=== PATIENT | female | born 1980 | race African-American/Black ===

== ENCOUNTER 2017-04-26 10:48 | Emergency (ER) | payer MEDICAID ==
[~2017-04-26] VITALS: Ht 160 cm; Wt 58.1 kg
[2017-04-26 10:56] VITALS: BP_SYST 109
--- NOTE | 2017-04-26 11:29 | NUR ---
Patient to ER bed 4 to gown for evaluation. Side rails up. Report given to Kenn GUO.
[2017-04-26 11:30] LABS: BASOPHILS % (AUTO) 0.8 % (0.0-2.0); EOSINOPHILS # (AUTO) 0.1 K/uL (0.0-0.4); EOSINOPHILS % (AUTO) 2.2 % (0.0-4.0); HEMOGLOBIN 13.1 g/dL (12.0-16.0); LYMPHOCYTES % (AUTO) 22.6 % (20.5-51.5); MEAN CORPUSCULAR HEMOGLOBIN 30 pg (27-31); MEAN CORPUSCULAR HGB CONC 33 % (32-36); MEAN CORPUSCULAR VOLUME 92 fL (79.0-98.0); MONOCYTES # (AUTO) 0.5 K/uL (0.0-1.0); MONOCYTES % (AUTO) 11.3 % (1.7-9.3); NEUTROPHILS # (AUTO) 2.6 K/uL (1.8-7.7); NEUTROPHILS % (AUTO) 63.1 % (40.0-70.0); PLATELET COUNT (AUTO) 280 K/uL (130-430); RED BLOOD CELL COUNT(AUTO) 4.35 MIL/uL (4.2-6.2); RED CELL DISTRIBUTION WIDTH 12.7 % (9.0-15.0); WHITE BLOOD COUNT (AUTO) 4.2 K/uL (4.8-10.8)
[2017-04-26 11:33] LABS: INR 1.1 (0.8-1.2); PROTHROMBIN TIME 11.5 SECS (9.5-12.5)
--- NOTE | 2017-04-26 11:35 | NUR ---
Dr Blackburn at bedside examining patient
--- NOTE | 2017-04-26 11:35 | NUR ---
Pt brought by self, A&Ox4, pt c/o cough and sore throat, skin pink and warm, ambulatory, VS WNL
[2017-04-26 11:41] LABS: CALCIUM 8.8 mg/dL (8.4-11.0); CREATININE 0.77 mg/dL (0.55-1.30); POTASSIUM 3.8 mmol/L (3.5-5.1)
[2017-04-26 12:57] VITALS: BP_SYST 109
--- NOTE | 2017-04-26 13:00 | NUR ---
Patient given written and verbal discharge instructions and verbalizes understanding. ER MD discussed with patient the results and treatment provided. Patient in stable condition. ID arm band removed. Rx of Clindamycin and Motrin given. Patient educated on pain management and to follow up with PMD. Pain Scale 0/10 . Opportunity for questions provided and answered.
== END 2017-04-26 12:57 | disposition home or self-care (01) ==
LOC: SED 10:48
DX: J02.9 Acute pharyngitis, unspecified (principal); R53.1 Weakness; Z88.0 Allergy status to penicillin
CPT/HCPCS: 36415; 80048; 81025; 84703; 85025; 85610-TC; 85730-TC; 99284

== ENCOUNTER 2017-07-15 18:30 | Emergency (ER) | payer MEDICAID ==
[~2017-07-15] VITALS: Ht 160 cm; Wt 56.7 kg
[2017-07-15 18:51] VITALS: BP_SYST 112
[2017-07-15] MEDS ORDERED: IBUPROFEN 600 MG TABLET PO ONE (19:45)
[2017-07-15 20:12] VITALS: BP_SYST 112
== END 2017-07-15 20:12 | disposition home or self-care (01) ==
LOC: SED 18:30
DX: S92.414A Nondisplaced fracture of proximal phalanx of right great toe, initial encounter for closed fracture (principal); Z88.0 Allergy status to penicillin; Z86.2 Personal history of diseases of the blood and blood-forming organs and certain disorders involving the immune mechanism; W01.0XXA Fall on same level from slipping, tripping and stumbling without subsequent striking against object, initial encounter; Y93.02 Activity, running; Y92.89 Other specified places as the place of occurrence of the external cause; Y99.8 Other external cause status
CPT/HCPCS: 81025; 99284

== ENCOUNTER 2017-11-11 16:06 | Emergency (ER) | payer MEDICAID ==
[~2017-11-11] VITALS: Ht 160 cm; Wt 57.6 kg
[2017-11-11 16:12] VITALS: BP_SYST 114
[2017-11-11 16:50] VITALS: BP_SYST 104
[2017-11-11 17:00] LABS: BILIRUBIN,URINE NEGATIVE (NEGATIVE); BLOOD, URINE NEGATIVE (NEGATIVE); CLARITY/URINE CLEAR (CLEAR); COLOR,URINE YELLOW (YELLOW); GLUCOSE,URINE NEGATIVE (NEGATIVE); KETONES,URINE NEGATIVE (NEGATIVE); LEUKOCYTE ESTERASE ,URINE NEGATIVE (NEGATIVE); NITRITE, URINE NEGATIVE (NEGATIVE); PROTEIN URINE NEGATIVE (NEGATIVE)
== END 2017-11-11 16:50 | disposition home or self-care (01) ==
LOC: SED 16:06
DX: R07.89 Other chest pain (principal); Z88.0 Allergy status to penicillin; Z86.2 Personal history of diseases of the blood and blood-forming organs and certain disorders involving the immune mechanism
CPT/HCPCS: 81003; 81025; 93005; 99285

== ENCOUNTER 2019-03-08 08:09 | Emergency (ER) | payer BC, MEDICAID ==
[~2019-03-08] VITALS: Ht 160 cm; Wt 56.7 kg
[2019-03-08 08:10] VITALS: BP_SYST 96
--- NOTE | 2019-03-08 08:10 | NUR ---
BROUGHT BACK TO BED #7 AND TRIAGED. REPORT GIVEN TO DEVON
--- NOTE | 2019-03-08 08:25 | NUR ---
Patient AAOx4, brought in by self to ER complaining of allergic reaction from eating mayonnaise sandwich last week. Patient is allergic to penicillin and mayonnaise. Patient denies any SOB or difficulty breathing/swallowing. Patient denies any reports of pain at this time. Patient reports she has developed rashes along upper and lower lips and along left arm during the past two days. Patient reports taking Benadryl for her reactions. Slight bilateral eye swelling noted. No signs or symptoms of acute distress noted.
--- NOTE | 2019-03-08 08:27 | NUR ---
ER Dr. Mercado at bedside examining patient.
[2019-03-08] MEDS ORDERED: KETOROLAC TROMETHAMINE 60 MG/2 ML VIAL IM ONE (08:30)
--- NOTE | 2019-03-08 08:35 | NUR ---
Patient transported to radiology via wheelchair, accompanied by heat treat technician. Patient in stable condition.
--- NOTE | 2019-03-08 08:45 | NUR ---
Patient back from radiology via wheelchair. No signs or symptoms of acute distress.
[2019-03-08] MEDS ORDERED: fentaNYL CITRATE/PF 100 MCG/2 ML AMP IM ONE (09:30)
--- NOTE | 2019-03-08 09:55 | NUR ---
Patient given written and verbal discharge instructions and verbalizes understanding. ER Dr. Mercado discussed with patient the results and treatment provided. Patient in stable condition. ID arm band removed. Rx of Motrin given. Patient educated on pain management and to follow up with PMD. Pain Scale 0/10. Opportunity for questions provided and answered. Medication side effect fact sheet provided.
[2019-03-08 09:57] VITALS: BP_SYST 97
== END 2019-03-08 09:53 | disposition home or self-care (01) ==
LOC: SED 08:09
DX: R51 Headache (principal); Z86.2 Personal history of diseases of the blood and blood-forming organs and certain disorders involving the immune mechanism; Z88.0 Allergy status to penicillin
CPT/HCPCS: 70450; 96372; 99284; J1885; J3010

== ENCOUNTER 2019-04-16 08:03 | Emergency (ER) | payer BC, MEDICAID ==
[~2019-04-16] VITALS: Ht 160 cm; Wt 57.6 kg
[2019-04-16 08:05] VITALS: BP_SYST 104
[2019-04-16] MEDS ORDERED: FAMOTIDINE PF 20 MG/2 ML VIAL IVP ONE (08:30)
[2019-04-16] MEDS ORDERED: EPINEPHrine 1 MG/ML AMP SUBCUT ONE (08:30)
[2019-04-16] MEDS ORDERED: methylPREDNISolone SOD SUCC/PF 62.5 MG/ML VIAL IVP ONE (08:30)
[2019-04-16] MEDS ORDERED: DIPHENHYDRAMINE INJ 50 MG/ML VIAL IVP ONE (08:30)
[2019-04-16] MEDS ORDERED: LORazepam 2 MG/ML VIAL (FOR ER USE) ONE (09:41)
[2019-04-16 12:50] VITALS: BP_SYST 101
== END 2019-04-16 12:52 | disposition home or self-care (01) ==
LOC: SED 08:03
DX: T78.40XA Allergy, unspecified, initial encounter (principal); Z86.2 Personal history of diseases of the blood and blood-forming organs and certain disorders involving the immune mechanism; Z88.0 Allergy status to penicillin
CPT/HCPCS: 96372; 96374; 96375; 99283; J0171; J1200; J2930; J3490; J2060

== ENCOUNTER 2020-03-01 13:25 | Emergency (ER) | payer BC, MEDICAID, SELFPAY ==
[~2020-03-01] VITALS: Ht 154.9 cm; Wt 59.0 kg
[2020-03-01 13:25] VITALS: BP_SYST 111
--- NOTE | 2020-03-01 13:25 | NUR ---
TRIAGED IN TENT AND BROUGHT BACK TO BED #8, REPORT GIVEN TO SARA
--- NOTE | 2020-03-01 13:55 | NUR ---
DR BUCIO IN TO ASSESS. PT CALM ,ALERT.
[2020-03-01] MEDS ORDERED: ACETAMINOPHEN 500 MG TABLET ONE (13:59)
[2020-03-01] MEDS ORDERED: ASPIRIN 81 MG TAB.CHEW PO ONE (14:00)
--- NOTE | 2020-03-01 14:30 | NUR ---
BIB HER FROM HOME AFTER 2 DAYS OF FEVER, GENERAL BODY ACHES AND LETHARGY. C/O LBP AND BODY ACHES. COMMUNICATES CLEARLY IN FULL COMPLETE SENTENCES, SKIN HOT. RESP UNLABORED, DENIES CP/SOB. RESTING EASY ON GURNEY, ST ON MONITOR NO ECTOPY. MEDICATED FOR FEVER. TOLERATING PO WELL
[2020-03-01] MEDS ORDERED: ACETAMINOPHEN 500 MG TABLET PO ONE (14:45)
[2020-03-01 15:02] LABS: BASOPHILS % (AUTO) 0.2 % (0.0-2.0); HEMATOCRIT 39.7 % (36-48); HEMOGLOBIN 13.3 g/dL (12.0-16.0); LYMPHOCYTES # (AUTO) 0.9 K/uL (1.0-5.5); LYMPHOCYTES % (AUTO) 9.5 % (20.5-51.5); MEAN CORPUSCULAR HEMOGLOBIN 32 pg (27-31); MEAN CORPUSCULAR HGB CONC 34 % (32-36); MEAN CORPUSCULAR VOLUME 95 fL (79.0-98.0); MONOCYTES # (AUTO) 0.9 K/uL (0.0-1.0); MONOCYTES % (AUTO) 10.2 % (1.7-9.3); NEUTROPHILS # (AUTO) 7.3 K/uL (1.8-7.7); NEUTROPHILS % (AUTO) 80.1 % (40.0-70.0); PLATELET COUNT (AUTO) 220 K/uL (130-430); RED BLOOD CELL COUNT(AUTO) 4.19 MIL/uL (4.2-6.2); WHITE BLOOD COUNT (AUTO) 9.1 K/uL (4.8-10.8)
[2020-03-01 15:10] LABS: CALCIUM 8.4 mg/dL (8.4-11.0); CREATININE 0.85 mg/dL (0.55-1.30); POTASSIUM 3.2 mmol/L (3.5-5.1)
[2020-03-01 15:15] LABS: ALBUMIN 3.5 g/dL (3.4-4.8); C-REACTIVE PROTEIN QUANT 7.4 mg/dL (0-0.5); TOTAL BILIRUBIN 0.9 mg/dL (0.0-1.0)
--- NOTE | 2020-03-01 15:17 | NUR ---
ALERT, CALM, NO CHANGE IN MENTATION. RESP UNLABORED. TOLERATING PO WELL
--- NOTE | 2020-03-01 16:30 | NUR ---
ALERT, CALM, RESP UNLABORED. DENIES CP/SOB STATES "READY TO GO HOME." DR BUCIO AWARE. HE ORDERED REPEAT TROPONIN
[2020-03-01 17:35] VITALS: BP_SYST 108
--- NOTE | 2020-03-01 17:37 | NUR ---
Patient given written and verbal discharge instructions and verbalizes understanding. ER MD discussed with patient the results and treatment provided. Patient in stable condition. ID arm band removed. IV catheter removed intact and dressing applied, no active bleeding. Patient educated on pain management and to follow up with PMD. Pain Scale 2/10. Opportunity for questions provided and answered. Medication side effect fact sheet provided. OFF UNIT STEADY. INDICATED UNDERSTANDING TO RETURN IF WORSENING SYMPTOMS
== END 2020-03-01 17:35 | disposition home or self-care (01) ==
LOC: SED 13:25 → EEVIPCON 13:25 → SED 17:35
DX: B34.9 Viral infection, unspecified (principal); R07.89 Other chest pain; Z88.0 Allergy status to penicillin; Z88.5 Allergy status to narcotic agent; Z20.828 Contact with and (suspected) exposure to other viral communicable diseases
CPT/HCPCS: 36415; 71045; 80053; 81025; 82728; 83615; 83880; 84484; 85025; 85379; 86140; 86710; 93005; 99285; U0002

== ENCOUNTER 2023-02-21 09:18 | Emergency (ER) | payer BC, MEDICAID ==
[~2023-02-21] VITALS: Ht 160 cm; Wt 60.8 kg
[2023-02-21 09:22] VITALS: BP_SYST 106
[2023-02-21] MEDS ORDERED: IBUP-1969 PO (11:09)
[2023-02-21 11:49] VITALS: BP_SYST 108
== END 2023-02-21 11:50 | disposition home or self-care (01) ==
LOC: SED 09:18
DX: S93.401A Sprain of unspecified ligament of right ankle, initial encounter (principal); Z88.0 Allergy status to penicillin; Z88.6 Allergy status to analgesic agent; Z79.899 Other long term (current) drug therapy; W19.XXXA Unspecified fall, initial encounter; Y93.89 Activity, other specified; Y92.89 Other specified places as the place of occurrence of the external cause; Y99.8 Other external cause status
CPT/HCPCS: 99283